=== PATIENT | female | born 1990 | race Caucasian/White ===

== ENCOUNTER 2017-12-18 11:20 | Emergency (ER) | payer BC ==
[2017-12-18] MEDS ORDERED: IBUPROFEN 600 MG TAB PO ONE (11:34)
--- NOTE | 2017-12-18 13:07 | EDPHY ---
General Time Seen by Provider: 12/18/17 12:39 Narrative: CHIEF COMPLAINT: Left knee pain HISTORY OF PRESENT ILLNESS: Patient presents by private vehicle with complaints of left knee pain. She was doing yoga just prior to arrival when she felt her left knee pop and lock up. She has had constant pain since then. Unable to straighten it. Pain is severe when she tries to move it. It is moderate at rest. Does not radiate. She does associate this with some bruising around the knee over the lower part of her thigh and 1st part of her lower leg. No injury elsewhere. She has a history of bucket handle meniscus tear status post repair in that knee 2 years ago. No other associated complaints or modifying factors. ESTABLISHED ORTHOPEDIST: Located in [place] REVIEW OF SYSTEMS: Ten systems reviewed and are negative unless otherwise noted in the HPI PAST MEDICAL HISTORY: Orthopedic injuries, PAST SURGICAL HISTORY: Laparoscopic surgery, fundoplication, tonsillectomy, adenoidectomy SOCIAL HISTORY: Nonsmoker. flight instructor. Lives here in [place] independently. FAMILY HISTORY: Noncontributory EXAMINATION: General Appearance: Alert, no distress Cardiovascular: Symmetric DP PT pulses 2+. There is brisk cap refill on the left foot. Neurological: A&O, sensory symmetric, strength symmetric Skin: Warm and dry, no rash. No petechiae or purpura. No laceration or puncture. Minimal ecchymosis on the distal medial left thigh. Extremities: Left knee is held at a 90 degree angle. There is tenderness about the entire joint line, medial greater than lateral. There is no tenderness of the foot, ankle or heel. No tenderness over the left jorge. No tested left hip. Unable to fully range the left knee due to pain. She is able to fire the left quadriceps without evidence of tear to the patellar tendon. No evidence of DVT. Psychiatric: Mood and affect normal DIFFERENTIAL DIAGNOSES: Including but not limited to meniscus tear, sprain, strain, fracture, foreign body, loose body, patellar fracture, DVT MDM: 12:40 p.m. Acute left knee pain just prior to arrival today while performing yoga. She is unable to straighten the knee at that time. She wants to consult her surgeon prior to doing so. I have offered pain medication and passive range of motion of the knee but she is currently declining respectively. 1:10 p.m. Patient has agreed to taking an oral pain medication and passive extension of the knee. X-ray will be obtained after this. 2:30 p.m. X-ray of the knee is unremarkable for any acute findings or foreign bodies. Patient been re-evaluated. She is improved in her range of motion at this time. She will be placed in a knee immobilizer and crutches short term. We discussed weight-bearing as tolerated, ice, elevation anti-inflammatories. We discussed follow up with orthopedic surgeon here for definitive care and likely MRI. We discussed ED precautions for any worsening pain, numbness, tingling, weakness, redness, warmth or any chest pain or shortness of breath. She is comfortable this plan and discharged home stable condition. SUPERVISION: This patient was independently evaluated without direct involvement of or examination by the attending physician. - Diagnostics Imaging Results: Imaging Impressions Knee X-Ray 12/18/17 11:33 Impression: There is no acute osseous abnormality identified. If there is further clinical concern regarding the patient's knee pain, MR imaging could be considered. - History Smoking Status: Never smoked - Objective Vital Signs: Initial Vital Signs Temperature (C) 97.7 F 12/18/17 11:23 Heart Rate 86 12/18/17 11:23 Respiratory Rate 16 12/18/17 11:23 Blood Pressure 136/87 H 12/18/17 11:23 O2 Sat (%) 96 12/18/17 11:23 O2 Delivery Mode Room Air Allergies/Adverse Reactions: ketorolac [From Toradol] Allergy (Verified 12/18/17 11:23) morphine Allergy (Verified 12/18/17 11:23) Home Medications: Medication Instructions Recorded oxyCODONE HCL/ACETAMINOPHEN 1 each PO Q4-6PRN PRN #7 tablet 12/18/17 [Percocet 5-325 mg Tablet] Medications Given: Discontinued Medications Ibuprofen (Motrin) 600 mg PO EDNOW ONE Stop: 12/18/17 11:35 Last Admin: 12/18/17 11:36 Dose: 600 mg Oxycodone/Acetaminophen (Percocet 5/325) 1 tab PO EDNOW ONE Stop: 12/18/17 13:09 Last Admin: 12/18/17 13:23 Dose: 1 tab Departure - Departure Disposition: Home, Routine, Self-Care Clinical Impression: Left knee sprain Qualifiers: Encounter type: initial encounter Involved ligament of knee: unspecified ligament Qualified Code(s): S83.92XA - Sprain of unspecified site of left knee, initial encounter Acute knee pain Qualifiers: Laterality: left Qualified Code(s): M25.562 - Pain in left knee Medial meniscus tear Qualifiers: Tear current or old: current Encounter type: initial encounter Meniscus tear of knee type: unspecified type Laterality: left Qualified Code(s): S83.242A - Other tear of medial meniscus, current injury, left knee, initial encounter Condition: Good Instructions: Knee Sprain (ED), Meniscus Tear (ED) Additional Instructions: 1. Medications as discussed as needed, including ibuprofen 600mg every 8 hours as needed. Do not take in conjunction with anticoagulants or other NSAIDs 2. Follow up with Orthopedics for definitive care. Contact Dr. Stark to be seen in his office 3. Rest, ice and elevation often. 4. ED precautions as discussed for worsening pain, redness, fever, changes in range of motion, changes in sensation Referrals: Miller Stark MD [Medical Doctor] - As per Instructions Prescriptions: oxyCODONE HCL/ACETAMINOPHEN [Percocet 5-325 mg Tablet] 1 each PO Q4-6PRN PRN #7 tablet PRN Reason: Pain, Breakthrough
[2017-12-18] MEDS ORDERED: OXYCODONE/APAP 5/325 TAB PO ONE (13:08)
[2017-12-18 15:22] VITALS: BP 107/68
== END 2017-12-18 15:21 | disposition home or self-care (01) ==
DX: S83.242A Other tear of medial meniscus, current injury, left knee, initial encounter (principal); S83.92XA Sprain of unspecified site of left knee, initial encounter; X50.0XXA Overexertion from strenuous movement or load, initial encounter; Y93.42 Activity, yoga; Y99.8 Other external cause status
CPT/HCPCS: L1830